=== PATIENT | female | born 1945 | race Caucasian/White ===

== ENCOUNTER 2018-12-27 11:34 | Emergency (ER) | payer MEDICARE, BC ==
[~2018-12-27] VITALS: Ht 162.6 cm; Wt 91.2 kg
[2018-12-27] MEDS ORDERED: HYDROCHLOROTHIA25 MG PO (11:49)
[2018-12-27] MEDS ORDERED: K-TAB ER20 MEQ PO (13:05)
--- NOTE | 2018-12-27 15:10 | EKG ---
[facility] [address] [facility] [place], [place] [address] Signed Normal sinus rhythm Normal ECG No previous ECGs available Confirmed by SUZI PATHAK DO ([id number]) on 12/27/2018 3:10:33 PM Electronically Signed By: SUZI PATHAK DO 12/27/18 1510 PATIENT NAME: MONE CHRISTOPHER Electrocardiogram DATE OF : 47 PHYSICIAN: SUZI PATHAK DO REPORT #: [id number] REPORT IS CONFIDENTIAL AND NOT TO BE RELEASED WITHOUT AUTHORIZATION
== END 2018-12-27 13:20 | disposition home or self-care (01) ==
LOC: ED 11:34
DX: I47.1 Supraventricular tachycardia (principal); I10 Essential (primary) hypertension; Z87.891 Personal history of nicotine dependence; Z90.710 Acquired absence of both cervix and uterus; Z79.899 Other long term (current) drug therapy
CPT/HCPCS: 71046; 80053; 84443; 84484; 85025; 93005; 93010; 99284-25

== ENCOUNTER 2024-11-19 13:48 | Inpatient (IN) | payer MEDICARE, BC ==
[~2024-11-19] VITALS: Ht 162.6 cm; Wt 100.1 kg
[~2024-11-19 13:48] MED LIST: HYDROCHLOROTHIA25 MG PO; K-TAB ER20 MEQ PO
[2024-11-19] MEDS ORDERED: ALBUTEROL/IPRATROPIUM 3 ML NEB INH PRN (14:45)
[2024-11-19 14:50] LABS: BASOPHILS 0.4 % (0-2); EOSINOPHILS 0.9 % (0-6); HEMOGLOBIN 13.5 g/dL (12.0-18.0); LYMPHOCYTES 9.7 % (24-44); MCH 28.2 (27-36); MCHC 34.6 g/dl (30-36); MCV 81.5 fl (81-99); MONOCYTES 5.3 % (0-12); NEUTROPHILS 83.7 % (39-80); PLATELET COUNT 341 K/uL (140-440); RBC 4.78 M/ul (4.3-5.7); RDW 14.9 (10.5-15.0)
[2024-11-19] MEDS ORDERED: CELECOXIB200 MG PO (14:55)
[2024-11-19] MEDS ORDERED: BISOPROLOL FUMAR5 MG PO (14:56)
[2024-11-19] MEDS ORDERED: AMLODIPINE BES2.5 MG PO (14:57)
[2024-11-19] MEDS ORDERED: ZINC50 M2 PO (14:59)
[2024-11-19] MEDS ORDERED: GLIPIZIDE ER2.5 MG PO (14:59)
[2024-11-19] MEDS ORDERED: TURMERIC500 M2 PO (14:59)
[2024-11-19] MEDS ORDERED: MELATONIN10 MG PO (15:00)
[2024-11-19] MEDS ORDERED: OCUVITE EYE HE1 EACH PO (15:00)
[2024-11-19] MEDS ORDERED: MAGNESIUM500 MG PO (15:02)
[2024-11-19] MEDS ORDERED: VITAMIN D325 MCG PO (15:02)
[2024-11-19] MEDS ORDERED: FLECAINIDE ACE150 MG PO (15:03)
[2024-11-19] MEDS ORDERED: GLUCOSAMINE &1 EACH PO (15:03)
[2024-11-19 15:10] LABS: ALBUMIN 2.7 g/dL (3.4-5.0); ALBUMIN/GLOBULIN RATIO 0.5 (1.1-2.4); ANION GAP 13.5 (7-21); BILIRUBIN, TOTAL 0.8 mg/dL (0.2-1.0); BUN/CREATININE RATIO 22.48 (6.0-28.6); CALCIUM 9.6 mg/dL (8.5-10.1); CREATININE, SERUM 1.29 mg/dL (0.55-1.02); MAGNESIUM 2.6 mg/dL (1.8-2.4); POTASSIUM 3.5 mmol/L (3.5-5.1); PROTEIN, TOTAL 8.1 g/dL (6.4-8.2)
[2024-11-19] MEDS ORDERED: CEFTRIAXONE SODIUM 1 GM in SODIUM CHLORIDE 0.9% 100 ML IV ONE (15:30)
[2024-11-19] MEDS ORDERED: AZITHROMYCIN 500 MG in DEXTROSE 5% 250 ML IV ONE (15:30)
[2024-11-19] MEDS ORDERED: FUROSEMIDE 40 MG/4 ML VIAL IV ONE (15:30)
[2024-11-19 15:53] LABS: CORONAVIRUS COVID-19 AG NEGATIVE (NEGATIVE); INFLUENZA A AG NEGATIVE (NEGATIVE); INFLUENZA B AG NEGATIVE (NEGATIVE)
[2024-11-19] MEDS ORDERED: ACETAMINOPHEN 500 MG TAB PO ONE (19:00)
[2024-11-19] MEDS ORDERED: GLUCAGON,HUMAN RECOMBINANT 1 MG/ML VIAL SUB-Q PRN (19:15)
[2024-11-19] MEDS ORDERED: ACETAMINOPHEN 325 MG TAB PO PRN (19:15)
[2024-11-19] MEDS ORDERED: ondansetron HCL 4 MG/2 ML VIAL IV PRN (19:15)
[2024-11-19] MEDS ORDERED: IBLOOD GLUCOSE TEST STRIP 1 EA TEST XX PRN (19:15)
[2024-11-19] MEDS ORDERED: DEXTROSE 5% 1,000 ML IV PRN (19:15)
[2024-11-19] MEDS ORDERED: DEXTROSE 50% 50 ML SYR IV PRN ×2 (19:15)
[2024-11-19 20:35] VITALS: BP 108/92
[2024-11-19] MEDS ORDERED: INSULIN LISPRO 100 UNIT/ML ML SUB-Q SCH (21:00)
[2024-11-19] MEDS ORDERED: MELATONIN 3 MG TAB PO PRN (21:00)
[2024-11-19] MEDS ORDERED: IBLOOD GLUCOSE TEST STRIP 1 EA TEST VI SCH (21:00)
--- NOTE | 2024-11-19 21:00 | NUR ---
2024 arrived to room 109 from ER via stretcher. ambulated to bed, tolerated fair, SOB with exertion noted. on room air. standing admit weight 100.2KG. cooperativew ith assessment. lungs with crackles at bases. large abd stated LBM 11/13. abd large soft, bobbi non tender. edema to aqnkles +1 non pitting and generalized obese edema. Pleasant, alert and oriented. follows instrutions. oriented to room, denies CP or any discomofrt. Pillow between legs due to back surgery discomofrt, denies need for pain meds. Family and friends at bedside. CBG 271, received 5 units SSI. med explained, stated understanding
[2024-11-19] MEDS ORDERED: ALBUTEROL SULFATE 0.083% 3 ML VIAL INH PRN (21:15)
[2024-11-19 21:24] VITALS: BP 108/92
--- NOTE | 2024-11-19 22:31 | NUR ---
pt repositions self in bed, on room air, tele#[address] SR[address] no c/o CP no c/o any discomofrt. Melatonin 3mg po given on requests per c/o insomnia.
--- NOTE | 2024-11-19 22:58 | EKG ---
[facility] [address] [facility] [place] [address] Signed Normal sinus rhythm Minimal voltage criteria for LVH, may be normal variant ( R in aVL ) Nonspecific T wave abnormality Abnormal ECG When compared with ECG of 27-DEC-2018 11:38, Artifact, but otherwise no significant change Confirmed by Wander Ewing MD () on 11/19/2024 10:57:58 PM Electronically Signed By: WANDER EWING MD 11/19/24 2258 PATIENT NAME: MONE CHRISTOPHER Electrocardiogram DATE OF : 47 PHYSICIAN: WANDER EWING MD REPORT #: [id number] REPORT IS CONFIDENTIAL AND NOT TO BE RELEASED WITHOUT AUTHORIZATION
[2024-11-20] VITALS (7 sets, daily range): BP systolic 113–129; BP diastolic 46–98
--- NOTE | 2024-11-20 01:02 | NUR ---
CPOX going off, sats 84% on room air. Denies sob, repositioned back up in bed. O2 1LNC placed on, up to 92-94% tele#[address] SR, denies CP. pleasant and cooperative, warm blanket given on requests
--- NOTE | 2024-11-20 02:03 | NUR ---
[employer] OBTAINED VITALS. PT STATES NO NEEDS AT THIS TIME. CALL LIGHT WITHIN REACH.
--- NOTE | 2024-11-20 03:52 | NUR ---
resting, eyse closed, o2 1lnc in place, cpox at bedside, purewick in place
[2024-11-20 05:40] LABS: HEMATOCRIT 36.1 % (35.0-50.0); HEMOGLOBIN 12.4 g/dL (12.0-18.0); MCH 27.9 (27-36); MCHC 34.2 g/dl (30-36); MCV 81.5 fl (81-99); PLATELET COUNT 307 K/uL (140-440); RBC 4.43 M/ul (4.3-5.7); RDW 14.9 (10.5-15.0)
--- NOTE | 2024-11-20 05:43 | NUR ---
Awakens easily, c/o h/a, medicated with Tylenol. Cooperative with lab and vitals. Walked in room, cpox on in place, no sats changes, on 1LNC, resp increased to 20, no sats or pulse changes, lungs with crackles at bases, no cough noted. daily standing weight 99.9KG. tele#[address], SR, denies CP. Currently in chair, legs elevated, purewick changed. voiding tea colored urine. Pleasant and cooperative.
[2024-11-20 05:58] LABS: ALBUMIN 2.4 g/dL (3.4-5.0); ALBUMIN/GLOBULIN RATIO 0.51 (1.1-2.4); ANION GAP 12.3 (7-21); BILIRUBIN, TOTAL 0.9 mg/dL (0.2-1.0); BUN/CREATININE RATIO 22.69 (6.0-28.6); CALCIUM 8.8 mg/dL (8.5-10.1); CREATININE, SERUM 1.41 mg/dL (0.55-1.02); MAGNESIUM 2.5 mg/dL (1.8-2.4); PHOSPHORUS, INORGANIC 3.5 mg/dL (2.5-4.9); POTASSIUM 3.3 mmol/L (3.5-5.1); PROTEIN, TOTAL 7.1 g/dL (6.4-8.2)
[2024-11-20] MEDS ORDERED: bisacodyL 10 MG SUPP PR ONE (06:00)
[2024-11-20 06:27] LABS: BASOPHILS, MANUAL DIFF 1; LYMPHOCYTES, MANUAL DIFF 9; MONOCYTES, MANUAL DIFF 11; NEUTROPHILS, MANUAL DIFF 79
--- NOTE | 2024-11-20 07:35 | NUR ---
Patient in bed resting, eyes closed, respirtions even/non labored. Patient has no notable distress.
--- NOTE | 2024-11-20 08:11 | NUR ---
IMAGING CURRENTLY IN WITH PATIENT. WENCESLAO ADEN NOTIFIED BLOOD SUGAR WILL BE CHECKED ONCE THEY ARE DONE.
--- NOTE | 2024-11-20 08:40 | NUR ---
IMAGING DONE IN PATIENT'S ROOM. BLOOD SUGAR CHECKED AND REPORTED TO WENCESLAO ADEN.
[2024-11-20] MEDS ORDERED: ENOXAPARIN SODIUM 40 MG/0.4 ML SYR SUB-Q SCH (09:00)
[2024-11-20] MEDS ORDERED: SENNOSIDES/DOCUSATE 1 EA TAB PO SCH (09:00)
[2024-11-20] MEDS ORDERED: POLYETHYLENE GLYCOL 3350 1 PACKET PO SCH (09:00)
--- NOTE | 2024-11-20 10:00 | NUR ---
PATIENT AMBULATED HALLS WITH PT. THEY ARE CURRENTLY SITTING UP IN THEIR CHAIR WITH FAMILY IN THE ROOM VISITING.
[2024-11-20] MEDS ORDERED: POTASSIUM CHLORIDE 10 MEQ TABCR PO ONE (10:45)
[2024-11-20] MEDS ORDERED: LASIX20 MG PO (11:00)
[2024-11-20] MEDS ORDERED: BUMETANIDE0.5 MG PO (11:35)
[2024-11-20] MEDS ORDERED: GLIPIZIDE XL2.5 MG PO (11:36)
--- NOTE | 2024-11-20 11:59 | NUR ---
medications reconciled using pharmacy records, visual inspection of medications and patient interview
[2024-11-20] MEDS ORDERED: PHARMACY RENAL DOSE ADJUSTMENT 1 DOSE MISC PO SCH (12:00)
--- NOTE | 2024-11-22 13:52 | NUR ---
UR CLINICAL REVIEW: 2 MN LIA, MEETS INPT FOR SUSPECTED CHF VS PNEUMONIA NO BASELINE OXYGEN, NEED FOR OXYGEN, IV LASIX, TACHYPNEA, IV ANTIBIOTICS MEDICARE INPT 11/19/2024 @ 8054 ORDER MATCHES REG NO AUTH REQUIRED PER MEDICARE RULES DC TO HOME WHEN MEDICALLY STABLE. PLANNED 1-2 MIDNIGHTS
== END 2024-11-20 12:35 | disposition home or self-care (01) | DRG 315 ==
LOC: ED 13:48 → MS 19:14
PROVIDERS: Emergency Medicine; ADMIT Family Medicine; ATTEND Family Medicine
DX: R09.89 Other specified symptoms and signs involving the circulatory and respiratory systems (principal); N17.9 Acute kidney failure, unspecified; E11.9 Type 2 diabetes mellitus without complications; Z87.891 Personal history of nicotine dependence; Z90.710 Acquired absence of both cervix and uterus; Z98.890 Other specified postprocedural states; I10 Essential (primary) hypertension; Z79.84 Long term (current) use of oral hypoglycemic drugs; Z79.899 Other long term (current) drug therapy
CPT/HCPCS: 36415; 71045; 71260; 80053; 83735; 83880; 84100; 84484; 85025; 85379; 93005; 93010; 93306; 94640; 94762; 94799; 97161; A9270; J0456; J0696; J1650; J1815; J1940; J7060; Q9967